=== PATIENT | female | born 1995 | race African-American/Black ===

== ENCOUNTER 2022-08-09 13:00 | Emergency (ER) | payer MEDICAID ==
[~2022-08-09] VITALS: Ht 160 cm; Wt 58.0 kg
[2022-08-09 13:05] VITALS: BP 112/76
[2022-08-09] MEDS ORDERED: SODIUM CHLORIDE 0.9% 1,000 ML IV ONE (15:00)
[2022-08-09 15:50] LABS: BASOPHILS % 0.3 % (0.0-2.0); HEMATOCRIT. 36.7 % (36.0-48.0); HEMOGLOBIN. 12.5 g/dL (12.0-16.0); LYMPHOCYTES % 18.5 % (20.0-50.0); MEAN CORPUSCULAR HEMOGLOBIN 31.9 pg (28.0-32.0); MEAN CORPUSCULAR VOLUME 93.8 fL (81.0-99.0); MEAN PLATELET VOLUME 7.3 fl (7.4-10.4); MONOCYTES % 10.8 % (2.0-8.0); NEUTROPHILS % 68.4 % (40.0-76.0); PLATELET 345 x1000/uL (130-400); RED BLOOD CELL COUNT 3.92 mill/uL (4.2-5.4); RED CELL DISTRIBUTION WIDTH 12.6 % (11.6-14.6)
[2022-08-09 15:59] LABS: CHLORIDE 105 mEq/L (98-107)
[2022-08-09 16:07] LABS: ETHANOL BLOOD < 10 mg/dL
[2022-08-09 16:29] LABS: HCG SCREEN NEGATIVE
== END 2022-08-09 17:32 | disposition home or self-care (01) ==
LOC: ER 13:00
DX: G40.909 Epilepsy, unspecified, not intractable, without status epilepticus (principal)
CPT/HCPCS: 36415; 80053; 80320; 84703; 85025; 99283; G0480